=== PATIENT | male | born 1970 | race Hispanic/Latino ===

== ENCOUNTER → 2019-05-09 | Outpatient (CLI) | payer OTHER, SELFPAY | END | disposition home or self-care (01) | LOC: RAH 13:55 | PROVIDERS: ATTEND Internal Medicine Cardiovascular Disease | DX: Z13.6 Encounter for screening for cardiovascular disorders (principal) | CPT/HCPCS: 75571 ==

== ENCOUNTER 2021-07-20 20:39 | Emergency (ER) | payer OTHER ==
[~2021-07-20] VITALS: Ht 172.7 cm; Wt 157.9 kg
[2021-07-20 22:23] LABS: BASOPHILS % (AUTO) 0.7 % (0.0-5.0); EOSINOPHILS % (AUTO) 3.3 % (0.0-8.0); HEMATOCRIT 42.6 % (42-54); LYMPHOCYTES % (AUTO) 17.2 % (21.0-51.0); MEAN CORPUSCULAR HEMOGLOBIN 25.9 pg (27.0-33.0); MEAN CORPUSCULAR VOLUME 83.5 fL (79-99); MONOCYTES % (AUTO) 9.2 % (3.0-13.0); NEUTROPHILS % (AUTO) 68.9 % (40.0-77.0); PLATELET COUNT (AUTO) 331 K/uL (130-400); RED CELL DISTRIBUTION WIDTH 14.1 % (11.0-15.5); WHITE BLOOD COUNT (AUTO) 10.1 K/uL (4.8-10.8)
[2021-07-20 22:44] LABS: INR 1.09 (0.85-1.15); PROTHROMBIN TIME 11.8 SEC (9.6-11.6)
[2021-07-20 22:46] LABS: PARTIAL THROMBOPLASTIN TIME 29.3 SEC (26.3-35.5)
[2021-07-20 22:51] LABS: ALBUMIN 3.4 g/dL (3.5-5.0); BILIRUBIN,TOTAL 0.5 mg/dL (0.2-1.0); CREATININE 1.1 mg/dL (0.5-1.5); POTASSIUM 4.3 mmol/L (3.5-5.1); TOTAL PROTEIN, SERUM 7.7 g/dL (6.0-8.3)
[2021-07-20 22:54] LABS: B-TYPE NATRIURETIC PEPTIDE 43 pg/mL (0-100)
[2021-07-20 22:57] LABS: APPEARANCE,URINE Clear (CLEAR); BILIRUBIN,URINE Negative (NEGATIVE); COLOR,URINE Yellow (YELLOW); GLUCOSE, URINE (UA) Negative (NEGATIVE); KETONES,URINE 40 mg/dL (NEGATIVE); LEUKOCYTE ESTERASE ,URINE Trace (NEGATIVE); NITRATE,URINE Negative (NEGATIVE); OCCULT BLOOD,URINE Negative (NEGATIVE); PROTEIN,URINE Negative (NEGATIVE)
[2021-07-20 23:06] LABS: BACTERIA,URINE None Seen /HPF (None Seen); RBC,URINE None Seen /HPF (0-1); SQUAMOUS EPITHELIAL CELL,UR Few /HPF (0-2); WBC,URINE 0-1 /HPF (0-1)
[2021-07-21] MEDS ORDERED: 0.9%NACL 1000ML 1,000 ML IV SCH (01:00)
[2021-07-21 01:40] VITALS: BP 125/79
== END 2021-07-21 01:40 | disposition home or self-care (01) ==
LOC: EDH 20:39
DX: K62.5 Hemorrhage of anus and rectum (principal); E86.0 Dehydration; M62.82 Rhabdomyolysis; J42 Unspecified chronic bronchitis; Z20.822 Contact with and (suspected) exposure to COVID-19
CPT/HCPCS: 36415; 71045; 80053; 81001; 82550; 83690; 83880; 84484; 85025; 85610; 85730; 87635; 87804 ×2; 96360; 99284; C9803; J7030

== ENCOUNTER 2021-07-20 22:07 | Emergency (ER) | payer OTHER | END 2021-07-20 22:15 | disposition left against medical advice (07) | LOC: EDH 22:10 | DX: R06.02 Shortness of breath (principal); R05.9 Cough, unspecified; Z53.21 Procedure and treatment not carried out due to patient leaving prior to being seen by health care provider ==

== ENCOUNTER 2022-02-14 19:13 | Emergency (ER) | payer OTHER ==
[2022-02-14 20:18] LABS: BASOPHILS % (AUTO) 0.7 % (0.0-5.0); HEMATOCRIT 45.8 % (42-54); LYMPHOCYTES % (AUTO) 20.7 % (21.0-51.0); MEAN CORPUSCULAR HEMOGLOBIN 26.9 pg (27.0-33.0); MEAN CORPUSCULAR HGB CONC 32.8 g/dL (32.0-36.0); MEAN CORPUSCULAR VOLUME 82.2 fL (79-99); MONOCYTES % (AUTO) 10.4 % (3.0-13.0); NEUTROPHILS % (AUTO) 65.7 % (40.0-77.0); PLATELET COUNT (AUTO) 423 K/uL (130-400); RED BLOOD CELL COUNT(AUTO) 5.57 MIL/uL (4.50-6.20); RED CELL DISTRIBUTION WIDTH 14.6 % (11.0-15.5); WHITE BLOOD COUNT (AUTO) 11.2 K/uL (4.8-10.8)
[2022-02-14 20:20] LABS: APPEARANCE,URINE CLEAR (CLEAR); BILIRUBIN,URINE NEGATIVE (NEGATIVE); COLOR,URINE LIGHT-YELLOW (YELLOW); GLUCOSE, URINE (UA) NEGATIVE (NEGATIVE); KETONES,URINE NEGATIVE (NEGATIVE); LEUKOCYTE ESTERASE ,URINE 25 Leu/uL (NEGATIVE); NITRATE,URINE NEGATIVE (NEGATIVE); OCCULT BLOOD,URINE NEGATIVE (NEGATIVE); PH,URINE 6.5 (5.0-8.0); PROTEIN,URINE NEGATIVE (NEGATIVE); UROBILINOGEN,URINE 0.2 mg/dL (0.2-1.0)
[2022-02-14 20:27] LABS: CREATININE 1.3 mg/dL (0.5-1.5); POTASSIUM 3.6 mmol/L (3.5-5.1)
[2022-02-14 20:32] LABS: ALBUMIN 3.5 g/dL (3.5-5.0); BACTERIA,URINE RARE /HPF (None Seen); MUCUS,URINE RARE LPF (None Seen); RBC,URINE 0-1 /HPF (0-1); SQUAMOUS EPITHELIAL CELL,UR FEW /HPF (0-2)
[2022-02-14 22:05] LABS: CRP QUANTITATIVE 15.6 mg/L (0.00-9.0); MAGNESIUM 1.9 mg/dL (1.80-2.40)
[2022-02-14] MEDS ORDERED: 0.9%NACL 1000ML 1,000 ML IV ONE ×2 (22:30→22:34)
[2022-02-14] MEDS ORDERED: IOHEXOL 350 MG/ML 100ML INFUS..BTL IV ONE (23:40)
[2022-02-15 01:36] VITALS: BP 123/72
== END 2022-02-15 01:49 | disposition home or self-care (01) ==
LOC: EDH 19:13
DX: R55 Syncope and collapse (principal); R42 Dizziness and giddiness; G89.29 Other chronic pain; R10.9 Unspecified abdominal pain; Z20.822 Contact with and (suspected) exposure to COVID-19; K21.9 Gastro-esophageal reflux disease without esophagitis; J45.909 Unspecified asthma, uncomplicated
CPT/HCPCS: 99285; 96360; 71270; 71046; 87635; 82550; 83735; 80053; 85025; 85378; 86140; 81001; 36415; 93005; C9803; J7030; Q9967

== ENCOUNTER 2024-04-11 23:45 | Emergency (ER) | payer BC, OTHER ==
[~2024-04-11] VITALS: Ht 172.7 cm; Wt 162.4 kg
[2024-04-11 23:47] VITALS: O2SAT 97
[2024-04-11 23:48] VITALS: BP 137/71; PULSE 98; RESP 26; TEMP 98.8
[2024-04-12 01:02] LABS: BASOPHILS # (AUTO) 0.01 K/uL (0.00-0.20); BASOPHILS % (AUTO) 0.1 % (0.0-5.0); EOSINOPHILS # (AUTO) 0.09 K/uL (0.00-0.70); EOSINOPHILS % (AUTO) 0.9 % (0.0-8.0); HEMATOCRIT 41.3 % (42-54); IMMATURE GRANULOCYTE ABSOLUTE 0.07 K/uL (0-1); LYMPHOCYTES % (AUTO) 19.2 % (21.0-51.0); MEAN CORPUSCULAR HEMOGLOBIN 28.1 pg (27.0-33.0); MEAN CORPUSCULAR HGB CONC 32.2 g/dL (32.0-36.0); MEAN CORPUSCULAR VOLUME 87.1 fL (79-99); MONOCYTES # (AUTO) 1.2 K/uL (0.1-1.0); MONOCYTES % (AUTO) 11.4 % (3.0-13.0); NEUTROPHILS % (AUTO) 67.7 % (40.0-77.0); PLATELET COUNT (AUTO) 220 K/uL (130-400); RED BLOOD CELL COUNT(AUTO) 4.74 MIL/uL (4.50-6.20); RED CELL DISTRIBUTION WIDTH 16.6 % (11.0-15.5); WHITE BLOOD COUNT (AUTO) 10.3 K/uL (4.8-10.8)
--- NOTE | 2024-04-12 01:04 | HMCIMG ---
CHEST 1VW HISTORY: Shortness of breath COMPARISON: 02/14/2022 FINDINGS: A frontal projection of the chest was obtained. Prominent interstitial markings are seen with possible superimposed infiltrates. The heart is borderline enlarged. Degenerative changes are seen. No evidence of aortic calcification is seen. IMPRESSION: 1. Prominent interstitial markings are seen with possible superimposed infiltrates.
[2024-04-12 01:11] LABS: CREATININE 1.3 mg/dL (0.5-1.3); MAGNESIUM 2.1 mg/dL (1.80-2.40); POTASSIUM 4.5 mmol/L (3.5-5.1)
[2024-04-12 01:24] LABS: APPEARANCE,URINE CLEAR (CLEAR); BILIRUBIN,URINE NEGATIVE (NEGATIVE); GLUCOSE, URINE (UA) NEGATIVE (NEGATIVE); KETONES,URINE NEGATIVE (NEGATIVE); LEUKOCYTE ESTERASE ,URINE NEGATIVE Leu/uL (NEGATIVE); NITRATE,URINE NEGATIVE (NEGATIVE); OCCULT BLOOD,URINE NEGATIVE (NEGATIVE); PROTEIN,URINE NEGATIVE (NEGATIVE); UROBILINOGEN,URINE 0.2 mg/dL (0.2-1.0)
[2024-04-12 01:43] LABS: ADD UA MICROSCOPIC NO; COLOR,URINE YELLOW (YELLOW)
[2024-04-12 01:44] LABS: B-TYPE NATRIURETIC PEPTIDE 37 pg/mL (0-100)
[2024-04-12] MEDS: ASPIRIN 325MG TAB PO ONE (02:00)
[2024-04-12] MEDS: furoSEMIDE 40MG VIAL IV ONE (02:00)
[2024-04-12] MEDS: NITROGLYCERIN 1GM OINT 1 INCH/1GM TD ONE (02:01)
[2024-04-12] MEDS ORDERED: POTA-364 PO (02:55)
[2024-04-12] MEDS ORDERED: FURO40TA5 PO (02:55)
--- NOTE | 2024-04-12 02:56 | ERN ---
ED Note History of Present Illness Stated Complaint: SOB X 5 MONTHS, WORSE OVER LAST 3 WEEKS Chief Complaint: Shortness of Breath Time Seen by MD: 23:54 Time Seen by Midlevel: 23:54 Dictation: The patient is a 53-year-old male who presents to the emergency department with complaints of shortness of breath, lower extremity swelling onset five months ago. Patient reports swelling got worse three days ago. Patient reports PCP started him on furosemide 20 mg three days ago but continues with the swelling and shortness of breath. Patient reports he recently started seeing a employee benefits coordinator four days ago. Reports that they are going to schedule them for some exams but isn't sure which ones Allergies: Coded Allergies: No Known Drug Allergies (Unverified Allergy, Unknown, 07/20/21) Home Meds Active Scripts Potassium Chloride (Potassium Chloride) 20 Meq Tablet.er, 10 MEQ PO DAILY for 7 Days, #7 TAB 0 Refills Prov:LINDA PIEDRA [facility] 04/12/24 Furosemide (Furosemide) 40 Mg Tablet, 1 TAB PO DAILY for 7 Days, #7 TAB 0 Refills Prov:LINDA PIEDRA [facility] 04/12/24 Past Medical History Past Medical History: Asthma, GERD Surgical History: None RN Note Reviewed/Agreed w/PFSH: Yes Review of System Dictation Constitutional: Negative for fever,chills, and weight loss Eyes: Negative for injury, pain,redness, and discharge ENT: Negative for injury,pain or swelling Cardiovascular: Negative for chest pain, palpitations, positive for bilateral lower extremity edema Respiratory: Negative for cough, and wheezing, positive for shortness of breath Abdomen/GI: Negative for abdominal pain, nausea, vomiting, diarrhea, and constipation Back: Negative for injury and pain : Negative for injury, bleeding and discharge MS/Extremity: Negative for injury and deformity Skin: Negative for rash, and discoloration Neuro: Negative for headache, weakness, numbness, tingling, and seizure Psych: Negative for suicide ideation, homicidal ideation, and hallucinations Initial Vital Sign VS Vital Signs Date Time Temp Pulse Resp B/P (MAP) Pulse Ox O2 Delivery O2 Flow Rate FiO2 04/11/24 23:47 98.8 98 26 137/71 97 Room Air* 0 21 Physical Exam Dictation Vital Signs reviewed General Appearance: Alert, oriented x 3, no acute distress, well developed, nourished. Head and Face: non-traumatic. Eyes: PERRL, pink conjunctivas, eyelid no trauma, anterior chamber with arcus senilis. Ears: Pinnas intact and no signs of trauma or erythema ear canals clear and no discharge TM no erythema Nose: No discharge, no bleeding. Oropharynx: Mouth normal, tongue pink. pharynx clear,no erythema, tonsils no exudates, no abscesses noted, mucous membrane moist Neck: Supple, non-tender, no thyromegaly, no masses, no JVD, no bruits Breast:Deferred Chest:No tenderness, no crepitus, no paradoxical movement, no retractions Lungs:Clear, well-ventilated, symmetric, no rales, no wheezing, no rhonchi, no stridor, good breath sounds bilaterally Heart: Regular rate, regular rhythm, no murmur, no gallops Vascular: 3+ bilateral lower extremity edema Abdomen: Soft, positive bowel sounds, nondistended, no guarding, nontender, no rebound, no masses no hepatomegaly, no splenomegaly, no King's sign, no hernias. Rectal: Deferred Genital: Deferred Neurological: Normal speech, motor function intact, sensory function intact Musculoskeletal: Neck nontender, full range of motion, back nontender, full range of motion, Extremities: nontender, full range of motion Skin: Color pink, dry, no turgor, no rash, no lacerations, no abrasions, no contusions. Lymphatic: Deferred Results (Laboratory/Radiology) Laboratory/Radiology Laboratory Tests Test 04/12/24 00:31 04/12/24 01:01 White Blood Count 10.3 K/uL (4.8-10.8) Red Blood Count 4.74 MIL/uL (4.50-6.20) Hemoglobin 13.3 g/dL (14.0-18.0) L Hematocrit 41.3 % (42-54) L Mean Corpuscular Volume 87.1 fL (79-99) Mean Corpuscular Hemoglobin 28.1 pg (27.0-33.0) Mean Corpuscular Hemoglobin Concent 32.2 g/dL (32.0-36.0) Red Cell Distribution Width 16.6 % (11.0-15.5) H Platelet Count 220 K/uL (130-400) Mean Platelet Volume 10.0 fL (7.5-10.5) Immature Granulocyte % (Auto) 0.7 % (0-1) Neutrophils (%) (Auto) 67.7 % (40.0-77.0) Lymphocytes (%) (Auto) 19.2 % (21.0-51.0) L Monocytes (%) (Auto) 11.4 % (3.0-13.0) Eosinophils (%) (Auto) 0.9 % (0.0-8.0) Basophils (%) (Auto) 0.1 % (0.0-5.0) Neutrophils # (Auto) 7.0 K/uL (1.8-7.7) Lymphocytes # (Auto) 2.0 K/uL (1.0-4.8) Monocytes # (Auto) 1.2 K/uL (0.1-1.0) H Eosinophils # (Auto) 0.09 K/uL (0.00-0.70) Basophils # (Auto) 0.01 K/uL (0.00-0.20) Absolute Immature Granulocyte (auto 0.07 K/uL (0-1) Nucleated Red Blood Cells 0.0 % (0.0-0.19) Sodium Level 138 mmol/L (136-145) Potassium Level 4.5 mmol/L (3.5-5.1) Chloride Level 101 mmol/L (101-111) Carbon Dioxide Level 34 mmol/L (21-32) H Blood Urea Nitrogen 19 mg/dL (7-18) H Creatinine 1.3 mg/dL (0.5-1.3) Glomerular Filtration Rate Calc 66 mL/min (>90) Random Glucose 109 mg/dL (70-105) H Total Calcium 7.9 mg/dL (8.5-10.1) L Magnesium Level 2.10 mg/dL (1.80-2.40) Troponin I High Sensitivity 16 ng/L (4-75) B-Type Natriuretic Peptide 37 pg/mL (0-100) Urine Color YELLOW (YELLOW) Urine Appearance CLEAR (CLEAR) Urine pH 7.0 (5.0-8.0) Urine Specific [place] 1.010 (1.001-1.031) Urine Protein NEGATIVE mg/dL (NEGATIVE) Urine Glucose (UA) NEGATIVE mg/dL (NEGATIVE) Urine Ketones NEGATIVE mg/dL (NEGATIVE) Urine Occult Blood NEGATIVE (NEGATIVE) Urine Nitrate NEGATIVE (NEGATIVE) Urine Bilirubin NEGATIVE mg/dL (NEGATIVE) Urine Urobilinogen 0.2 mg/dL (0.2-1.0) Urine Leukocyte Esterase NEGATIVE Justine/uL Labs Reviewed?: Yes EKG: (+) rhythm (sinus rhythm) EKG Comment: EKG 04/2024 0035 Ventricular rate 93, sinus rhythm, left atrial enlargement, no STEMI ED Course ED Course Orders Procedure Category Date Status Time Cbc With Differential LAB 04/12/24 Complete 00:21 B-Type Natriuretic LAB 04/12/24 Complete Peptide 00:21 Chest 1vw RAD 04/12/24 Resulted 00:21 12 Lead Ekg Tracing- EKG 04/12/24 Logged Technical 00:21 Magnesium LAB 04/12/24 Complete 00:21 Troponin I High LAB 04/12/24 Complete Sensitivity 00:21 Urinalysis Profile LAB 04/12/24 Complete 00:21 Basic Metabolic Panel LAB 04/12/24 Complete 00:21 Furosemide 40mg Vial PHA 04/12/24 Complete (Lasix 40mg Vial) 01:30 Aspirin 325mg Tab PHA 04/12/24 Complete (Aspirin 325mg Tab) 01:30 Nitroglycerin 1gm PHA 04/12/24 Complete Oint (Nitroglycerin 1g 01:30 Us Venous Doppler US 04/12/24 Taken Bilateral 01:45 Current Medications Medications (Trade) Dose Ordered Sig/Reta Route PRN Reason Start Time Stop Time Status Last Admin Dose Admin Aspirin (Aspirin 325mg Tab) 325 mg ONCE ONCE PO 04/12/24 01:30 04/12/24 01:31 DC 04/12/24 02:00 Furosemide (LASix 40MG VIAL) 40 mg ONCE ONCE IV 04/12/24 01:30 04/12/24 01:31 DC 04/12/24 02:00 Nitroglycerin (Nitroglycerin 1gm Oint) 1 inch ONCE ONCE TD 04/12/24 01:30 04/12/24 01:31 DC 04/12/24 02:01 Vital Signs Date Time Temp Pulse Resp B/P (MAP) Pulse Ox O2 Delivery O2 Flow Rate FiO2 04/11/24 23:48 98.8 98 26 137/71 97 Room Air 0 04/11/24 23:47 98.8 98 26 137/71 97 Room Air* 0 21 Medical Decision Making MDM The patient is a 53-year-old male who presents to the emergency department with complaints of shortness of breath, lower extremity swelling onset five months ago. Patient reports swelling got worse three days ago. Patient reports PCP started him on furosemide 20 mg three days ago but continues with the swelling and shortness of breath. Patient reports he recently started seeing a employee benefits coordinator four days ago. Reports that they are going to schedule them for some exams but isn't sure which ones CBC showed no leukocytosis, mild normocytic anemia, chemistry showed BNP 37, BUN 66, troponin of 26, chest x-ray prominent interstitial markings. Patient received 40 mg of IV Lasix while in ER. Patient diuresed. Improvement in dyspn ea. Patient with no chest pain. Venous Doppler showed no DVT. Patient will have Lasix increased to 40 mg daily. Patient instructed to follow up with employee benefits coordinator for further workup. Differential diagnosis: CHF, DVT, cellulitis, pleural effusions, pneumonia, ACS, Need for hospitalization: Patient does not meet criteria for hospitalization. There are no social concerns with this patient. DX & DISP Disposition: Discharge Departure Impression: Primary Impression: Dyspnea Additional Impressions: Lower extremity edema, Anemia Condition: Stable Scripts Potassium Chloride (Potassium Chloride) 20 Meq Tablet.er 10 MEQ PO DAILY for 7 Days, #7 TAB 0 Refills Prov: LINDA PIEDRA [facility] 04/12/24 Furosemide (Furosemide) 40 Mg Tablet 1 TAB PO DAILY for 7 Days, #7 TAB 0 Refills Prov: LINDA PIEDRA [facility] 04/12/24 Additional Instructions: Please follow up with your employee benefits coordinator for further workup. Your employee benefits coordinator might want to schedule you for a echocardiogram to evaluate the function of your heart. Your Lasix will be increased to 40 mg daily. If symptoms worsen please return to ER. Please follow up with your primary doctor FOLLOW-UP WITH PRIMARY CARE PROVIDER IN 1 TO 2 DAYS. TAKE MEDICATIONS DIRECTED HERE IN THE EMERGENCY ROOM. OKAY TO CONTINUE HOME MEDICATIONS UNLESS OTHERWISE DISCUSSED DURING YOUR VISIT IN THE EMERGENCY ROOM TODAY. RETURN TO YOUR NEAREST EMERGENCY ROOM IF SYMPTOMS WORSEN OR IF THERE IS NO IMPROVEMENT. CALL 911 IF YOU NEED IMMEDIATE ASSISTANCE. TAKE TYLENOL OR MOTRIN [id number] NEEDED AND IF NO CONTRAINDICATIONS ARE PRESENT. INCREASE ORAL HYDRATION. A WOUND CULTURE OR URINE CULTURE WAS ORDERED HERE IN THE EMERGENCY ROOM DEPARTMENT PLEASE FOLLOW-UP WITH PRIMARY CARE PROVIDER AND ADVISE THEM TO GET REPEAT PORTS FROM OUR FACILITY. IF YOU HAD ANY BENI WRAP/SPLINTS THAT WERE APPLIED HERE, PLEASE DO NOT REMOVE THEM UNTIL YOU SEE YOUR PRIMARY CARE OR SPECIALTY. Referrals: GINI OKEEFE (PCP) Time of Disposition: 02:51 I have reviewed the case, and I agree with, Diagnosis and Plan LINDA PIEDRA [facility] Apr 12, 2024 02:56
--- NOTE | 2024-04-12 08:15 | HMCIMG ---
US VENOUS DOPPLER BILATERAL HISTORY: Swelling COMPARISON: None TECHNIQUE: Bilateral lower extremity venous Doppler ultrasound study was performed. FINDINGS: The study is limited due to patient's large body habitus. There is right inguinal lymph node measuring 11 mm. The common femoral, femoral, popliteal, and posterior tibial veins are visualized. Normal flow with augmentation and compressibilities are demonstrated. The greater saphenous veins are also seen and grossly patent. IMPRESSION: 1. No evidence of deep venous thrombosis is seen.
--- NOTE | 2024-04-12 15:09 | EKG ---
[facility] Test Date: 2024-04-12 Test Time: 00:35:01 Pat Name: YUSRA SALDANAZA Department: ED Room: Gender: M [employer]: [id number] : 1970 Requested By: LINDA PIEDRA Order Number: [id number] Reading MD: Yusra Patiño Measurements Intervals Theresa Rate: 93 P: 15 IL: 133 QRS: 26 QRSD: 96 T: 21 QT: 367 QTc: 457 Interpretive Statements Sinus rhythm Probable left atrial enlargement Compared to ECG 02/14/2022 21:45:57 No significant changes Electronically Signed On 04-12-2024 17:36:25 [employer] by Yusra Patiño Please click the below link to view image of tracing.
== END 2024-04-12 04:19 | disposition home or self-care (01) ==
LOC: EDH 23:45
DX: D64.9 Anemia, unspecified (principal); R06.00 Dyspnea, unspecified; R60.0 Localized edema; J45.909 Unspecified asthma, uncomplicated; K21.9 Gastro-esophageal reflux disease without esophagitis; Z79.899 Other long term (current) drug therapy
CPT/HCPCS: 99284; 83735; 84484; 80048; 83880; 85025; 81003; 36415; 93970; 96374; 71045; 93005; J1940